=== PATIENT | female | born 1965 | race Caucasian/White ===

== ENCOUNTER 2019-05-27 05:15 | Day surgery (SDC) ==
[2019-05-21 09:19] LABS: URINE SOURCE VOIDED
[2019-05-21 09:57] LABS: BASO% 1.4 % (0.0-0.8); EOS# 0.45 X1000 (0.0-0.7); EOS% 6.5 % (0.0-10.0); HEMATOCRIT 31.9 % (37.0-47.0); HEMOGLOBIN 9.3 g/dL (12.0-16.0); LYMPH# 1.74 X1000 (1.2-3.4); LYMPH% 25.1 % (20.5-51.1); MCH 24.5 PG (27-31); MCHC 29.2 g/dL (33-37); MCV 83.9 FL (81-99); MONO% 7.2 % (1.7-9.3); MPV 10.3 FL (7.4-10.4); NEUT# 4.15 X1000 (1.4-6.5); NEUT% 59.8 % (42.2-75.2); PLT 638 X1000 (130-400); RDW 16.6 % (11.5-14.5); WBC 6.94 X1000 (4.8-10.8)
[2019-05-21 10:25] LABS: BILIRUBIN URINE NEGATIVE (NEGATIVE); BLOOD URINE SMALL (NEGATIVE); COLOR YELLOW; GLUCOSE URINE NEGATIVE (NEGATIVE); KETONE URINE NEGATIVE (NEGATIVE); LEUKOCYTES URINE NEGATIVE (NEGATIVE); NITRITE URINE NEGATIVE (NEGATIVE); PH URINE 6.5; PROTEIN URINE NEGATIVE (NEGATIVE); SP GRAVITY URINE 1.013; TURBIDITY URINE CLEAR (CLEAR); UR EPITHELIAL CELLS <10 /HPF (<10); URINE BACTERIA NEGATIVE /HPF; URINE WBC <10 /HPF (<10); UROBILINOGEN URINE NORMAL (NORMAL)
[2019-05-21 12:52] LABS: URINE RBC 20-40 /HPF (<10)
--- NOTE | 2019-05-26 22:19 | HISTORY AND PHYSICAL ---
CHIEF COMPLAINT: Abnormal uterine bleeding. HISTORY OF PRESENT ILLNESS: Mrs. Ruiz is a 53-year-old woman who presents with complaints of abnormal uterine bleeding/heavy menstrual bleeding. The patient is status post medical management with p.o. Provera and surgical management with endometrial ablation. The patient still with abnormal uterine bleeding and describes heavy menstrual bleeding for about 7 days in April that is status close medical and surgical management. Currently, patient reports spotting. Denies shortness of breath, chest pain or heart palpitations. MEDICATIONS: Ferrous sulfate 325 mg p.o. daily, lisinopril 20 mg p.o. daily, medroxyprogesterone acetate 10 mg p.o. b.i.d., vitamin B12 1000 mcg sublingual daily. PAST MEDICAL HISTORY: Abnormal uterine bleeding, anemia, anxiety, depression, hypertension. PAST SURGICAL HISTORY: Adenoidectomy, bilateral tubal ligation, section x1, tympanoplasty, hysteroscopic endometrial ablation with NovaSure device. OBSTETRICAL HISTORY: . Three vaginal deliveries. One C section. 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 Last menstrual period 04/25/2019. Last Pap smear November 2018: Negative for intraepithelial lesions or malignancy. Last mammogram November 2018, BI-RADS 2, menarche at age 12. FAMILY HISTORY: Paternal grandfather with colon cancer. No known drug allergies. SOCIAL HISTORY: Negative for tobacco, alcohol, or drug use. PHYSICAL EXAMINATION: VITAL SIGNS: Weight 175 pounds. Height 5 feet 4 inches. Temperature 98.3 degrees Fahrenheit. Pulse rate 79, blood pressure 132/76. GENERAL APPEARANCE: No acute distress. Alert, awake and oriented x2. CARDIOVASCULAR: Regular rate and rhythm. Positive S1, S2. RESPIRATORY: Clear auscultation bilaterally. Normal breath sounds. ABDOMEN: Normal bowel sounds. Nontender, soft. ASSESSMENT: Mrs. Ruiz is a 53-year-old G4, P4 with abnormal uterine bleeding/heavy menstrual bleeding status post medical management with p.o. Provera and surgical management with endometrial ablation via NovaSure device. PLAN: Admit for definitive management with robotic-assisted laparoscopic hysterectomy with bilateral salpingectomy. Patient counseled on bilateral oophorectomy and risk of maintaining ovaries at age 53. Patient requesting to keep bilateral ovaries. In form will only remove ovary if abnormalities noted during surgery reviewed. Reviewed the risks, benefits and alternatives to robotic-assisted hysterectomy. The risks not limited to, bleeding, infection, injury to surrounding organs, including bowel, bladder, ureters, or blood vessels. Advised to continue ferrous sulfate and Provera b.i.d. Advised NPO after midnight prior to the procedure. I advised to hold all medications on day of procedure. Patient requesting discharge home on postoperative day 0. We will consider option, but recommend discharge home on postoperative day 1.
[2019-05-27] MEDS ORDERED: LR 1,000 ML ONE ×2 (05:38→06:29)
[2019-05-27] MEDS ORDERED: KEFZOL 1 GM/D5W 2 GM/100 ML IVPB ONE (05:38)
[2019-05-27] MEDS ORDERED: VERSED ONE (06:19)
[2019-05-27] MEDS ORDERED: DIPRIVAN 1% ONE (06:19)
[2019-05-27] MEDS ORDERED: DILAUDID ONE (06:20)
[2019-05-27] MEDS ORDERED: QUELICIN (DOSE) ONE (06:23)
[2019-05-27] MEDS ORDERED: ROBINUL ONE ×2 (06:23→09:28)
[2019-05-27] MEDS ORDERED: SODIUM CHLORIDE 0.9% 10 ML ONE ×2 (06:23→09:10)
[2019-05-27] MEDS ORDERED: XYLOCAINE-MPF 2% ONE (06:23)
[2019-05-27] MEDS ORDERED: NORCURON ONE ×2 (06:23→09:10)
[2019-05-27] MEDS ORDERED: SENSORCAINE-MPF 0.5%/EPI 1:200,000 ONE (06:28)
--- NOTE | 2019-05-27 06:50 | H&P REVIEW ---
H&P Update H&P Review: H&P was reviewed and patient was examined, No change has occurred in the patient's condition
[2019-05-27] MEDS ORDERED: DECADRON ONE (07:11)
[2019-05-27 08:46] LABS: URINE SOURCE CATH
[2019-05-27 08:52] LABS: BILIRUBIN URINE NEGATIVE (NEGATIVE); BLOOD URINE NEGATIVE (NEGATIVE); COLOR STRAW; GLUCOSE URINE NEGATIVE (NEGATIVE); KETONE URINE NEGATIVE (NEGATIVE); LEUKOCYTES URINE NEGATIVE (NEGATIVE); NITRITE URINE NEGATIVE (NEGATIVE); PROTEIN URINE NEGATIVE (NEGATIVE); SP GRAVITY URINE 1.016; TURBIDITY URINE CLEAR (CLEAR); UROBILINOGEN URINE NORMAL (NORMAL)
[2019-05-27 08:53] LABS: UR EPITHELIAL CELLS <10 /HPF (<10); URINE BACTERIA NEGATIVE /HPF; URINE RBC <10 /HPF (<10); URINE WBC <10 /HPF (<10)
[2019-05-27] MEDS ORDERED: OFIRMEV 1000 MG/ISOTONIC SOLN 1,000 MG/100 ML BOTTLE ONE (09:23)
[2019-05-27] MEDS ORDERED: MORPHINE ONE (09:25)
[2019-05-27] MEDS ORDERED: ZOFRAN ONE (09:27)
[2019-05-27] MEDS ORDERED: NEOSTIGMINE ONE (09:28)
[2019-05-27] MEDS ORDERED: METROGEL-VAGINAL 0.75% GEL ONE (10:46)
[2019-05-27] MEDS ORDERED: ZOFRAN IV PRN (10:57)
[2019-05-27] MEDS ORDERED: MOTRIN PO PRN (10:57)
[2019-05-27] MEDS ORDERED: AMBIEN PO PRN (10:57)
[2019-05-27] MEDS: DILAUDID ONE ×3 (11:01→11:58)
[2019-05-27] MEDS: TORADOL ONE ×2 (11:22→11:59)
[2019-05-27] MEDS: LR 1,000 ML IV SCH ×2 (11:45→18:50)
[2019-05-27] MEDS: MYLICON PO SCH ×3 (13:49→22:25)
[2019-05-27] MEDS: NORCO-10 PO PRN (14:42)
[2019-05-27] MEDS: OFIRMEV 1000 MG/ISOTONIC SOLN 1,000 MG/100 ML BOTTLE IV SCH ×2 (15:03→22:25)
[2019-05-27] MEDS ORDERED: SODIUM CHLORIDE 0.9% INJ PRN (15:51)
[2019-05-27] MEDS ORDERED: BENADRYL IV PRN (15:51)
[2019-05-27] MEDS ORDERED: PHENERGAN IV PRN (15:51)
[2019-05-27] MEDS ORDERED: DILAUDID PCA VIAL IV PRN (15:51)
[2019-05-27] MEDS: TORADOL IV SCH ×2 (16:41→22:25)
[2019-05-27] MEDS: COLACE PO SCH (22:25)
[2019-05-27] MEDS: PERIDEX MT SCH (22:26)
[2019-05-28] MEDS: OFIRMEV 1000 MG/ISOTONIC SOLN 1,000 MG/100 ML BOTTLE IV SCH ×2 (04:52→08:03)
[2019-05-28] MEDS: TORADOL IV SCH (04:52)
[2019-05-28] MEDS: LR 1,000 ML IV SCH ×2 (04:53→08:02)
[2019-05-28 06:52] LABS: BASO# 0.02 X1000 (0.0-0.2); BASO% 0.2 % (0.0-0.8); EOS# 0.03 X1000 (0.0-0.7); EOS% 0.2 % (0.0-10.0); HEMATOCRIT 26.6 % (37.0-47.0); HEMOGLOBIN 7.7 g/dL (12.0-16.0); IMM GRAN# 0.02 X1000 (0.0-0.04); IMM GRAN% 0.2 % (0.0-0.5); LYMPH# 1.46 X1000 (1.2-3.4); LYMPH% 11.1 % (20.5-51.1); MCH 23.8 PG (27-31); MCHC 28.9 g/dL (33-37); MCV 82.4 FL (81-99); MONO# 1.25 X1000 (0.11-0.59); MONO% 9.5 % (1.7-9.3); MPV 10.8 FL (7.4-10.4); NEUT# 10.35 X1000 (1.4-6.5); NEUT% 78.8 % (42.2-75.2); PLT 485 X1000 (130-400); RBC 3.23 XMIL (4.2-5.4); RDW 17.4 % (11.5-14.5); WBC 13.13 X1000 (4.8-10.8)
[2019-05-28 07:19] LABS: ANISOCYTOSIS 1+; BANDS 2 % (0-1); HYPOCHROM 2+; LYMPHS 12 % (21-51); MONO 6 % (1-9); SEGS 80 % (42-75)
[2019-05-28 07:20] LABS: LARGE PLATELETS 1+
[2019-05-28 07:56] VITALS: BP 114/54
[2019-05-28] MEDS: MYLICON PO SCH (08:03)
[2019-05-28] MEDS: PRINIVIL PO SCH ×2 (08:03→08:04)
[2019-05-28] MEDS: PERIDEX MT SCH (08:03)
[2019-05-28] MEDS: COLACE PO SCH (08:03)
[2019-05-28] MEDS ORDERED: MOTRIN PO SCH (08:30)
--- NOTE | 2019-05-28 08:30 | OB/GYN PROGRESS NOTE ---
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 Progress Note: Vital Signs - 24 hr 05/27/19 10:52 05/27/19 11:02 05/27/19 11:12 Temperature 96.8 F L Pulse Rate 96 H 80 94 H Respiratory Rate 18 14 14 Blood Pressure 132/64 Blood Pressure [Left Arm] 133/73 103/86 115/94 O2 Sat by Pulse Oximetry 96 100 100 05/27/19 11:22 05/27/19 11:32 05/27/19 11:35 Temperature 97.6 F Pulse Rate 81 73 70 Respiratory Rate 14 14 20 Blood Pressure 152/69 Blood Pressure [Left Arm] 115/94 152/85 O2 Sat by Pulse Oximetry 100 97 98 05/27/19 11:45 05/27/19 11:54 05/27/19 12:00 Temperature Pulse Rate 71 69 63 Respiratory Rate Blood Pressure 115/45 152/69 124/64 Blood Pressure [Left Arm] O2 Sat by Pulse Oximetry 98 05/27/19 12:15 05/27/19 12:30 05/27/19 13:00 Temperature Pulse Rate 67 66 72 Respiratory Rate Blood Pressure 124/70 126/70 138/64 Blood Pressure [Left Arm] O2 Sat by Pulse Oximetry 05/27/19 13:30 05/27/19 14:00 05/27/19 14:30 Temperature Pulse Rate 69 58 L 56 L Respiratory Rate Blood Pressure 131/93 142/63 146/81 Blood Pressure [Left Arm] O2 Sat by Pulse Oximetry 05/27/19 15:00 05/27/19 16:00 05/27/19 17:00 Temperature Pulse Rate 69 66 63 Respiratory Rate Blood Pressure 141/66 145/63 120/56 Blood Pressure [Left Arm] O2 Sat by Pulse Oximetry 05/27/19 17:06 05/27/19 18:00 05/27/19 21:00 Temperature Pulse Rate 61 78 Respiratory Rate 16 Blood Pressure 144/75 Blood Pressure [Left Arm] O2 Sat by Pulse Oximetry 96 99 05/27/19 21:11 05/28/19 00:43 05/28/19 03:51 Temperature 97.6 F 97.9 F 99.5 F Pulse Rate 67 58 L 72 Respiratory Rate 18 18 20 Blood Pressure 129/99 120/75 106/51 Blood Pressure [Left Arm] O2 Sat by Pulse Oximetry 99 99 99 05/28/19 07:54 Temperature 98.7 F Pulse Rate 72 Respiratory Rate 16 Blood Pressure 114/54 Blood Pressure [Left Arm] O2 Sat by Pulse Oximetry 94 L Laboratory Results - last 24 hr 05/27/19 05/28/19 07:06 05:24 WBC 13.13 H RBC 3.23 L Hgb 7.7 L Hct 26.6 L MCV 82.4 MCH 23.8 L MCHC 28.9 L RDW Std Deviation 17.4 H Plt Count 485 H MPV 10.8 H Immature Gran % (Auto) 0.2 Neut % (Auto) 78.8 H Lymph % (Auto) 11.1 L Walsh % (Auto) 9.5 H Eos % (Auto) 0.2 Baso % (Auto) 0.2 Immature Gran # (Auto) 0.02 Neut # (Auto) 10.35 H Lymph # (Auto) 1.46 Walsh # (Auto) 1.25 H Eos # (Auto) 0.03 Baso # (Auto) 0.02 Segmented Neutrophils 80 H Band Neutrophils 2 H Lymphocytes 12 L Monocytes 6 Hypochromia 2+ Large Platelets 1+ Anisocytosis 1+ Urine Source CATH Urine Color STRAW Urine Turbidity CLEAR Urine pH 6.0 Ur Specific [place] 1.016 Urine Protein NEGATIVE Ur Glucose (Stick) NEGATIVE Ur Ketones (Stick) NEGATIVE Urine Blood NEGATIVE Urine Nitrite NEGATIVE Urine Bilirubin NEGATIVE Urobilinogen Dipstick NORMAL Urine Leukocytes NEGATIVE Urine WBC (Auto) <10 Urine RBC (Auto) <10 U Epithel Cells (Auto) <10 Urine Bacteria (Auto) NEGATIVE HPI: Pt seen and examined. Currently w/o complaints. Reports pain well controlled with SPECIAL SERVICES DIRECTOR over night. Tolerating regular diet. Denies fever/chills/n/v. VS: please see above: GEN: NAD CV: RRR RESP: CTA b/l ABD: soft, NTTP INC: port sites x 4, c/d/i EXT: neg CT LABS: please see above ASSESSMENT: 53yo POD#1 s/p robotic assisted hysterectomy secondary to AUB/HMB- leiomyoma PLAN: -d/c SPECIAL SERVICES DIRECTOR, start PO pain meds -remove vaginal packing coated with metrogel -d/c mccann cath -OOB to ambulation -regular diet -plan for d/c home today
[2019-05-28] MEDS: NORCO-10 PO PRN (08:51)
[2019-05-28] MEDS ORDERED: PRILOSEC PO ONE (10:51)
--- NOTE | 2019-07-08 14:41 | OPERATIVE NOTE ---
PROCEDURE DATE: 05/27/2019 SURGEON: Lor Andrews DO. CORPORATE DEVELOPMENT ANALYST: Dr. Flower Stevens. PREOPERATIVE DIAGNOSIS: Abnormal uterine bleeding/heavy menstrual bleeding. POSTOPERATIVE DIAGNOSES: 1. Abnormal uterine bleeding/heavy menstrual bleeding. 2. Uterine fibroids. 3. Vaginal laceration. ANESTHESIA: General endotracheal anesthesia. ESTIMATED BLOOD LOSS: 100 mL. COMPLICATIONS: First degree vaginal laceration. SPECIMENS REMOVED: Cervix, uterus, bilateral tubes. SURGICAL RISKS: The patient was informed of the risks and benefits of a robotic-assisted laparoscopic hysterectomy with bilateral salpingectomy. Risks included, but were not limited to, bleeding, infection, injury to surrounding organs or tissue. The patient expressed understanding of the risks involved with the procedure. All questions were answered and the patient consented to the procedure. PROCEDURE DETAILS: The patient was taken to the operating room where a time-out was performed to confirm correct patient and correct procedure. The patient was then position on the operating table in dorsal lithotomy position with the legs supported using Horacio type stirrups. General endotracheal anesthesia was induced. The patient was administered preoperative prophylactic intravenous antibiotics. The abdomen and vagina were prepped and draped in the usual sterile fashion. Attention was then directed to the perineum where a Singer was inserted into the bladder. A bimanual exam was performed and the uterus was found to be anteverted and mobile with no palpable adnexal masses noted. A bivalve speculum was then placed into the vagina. The anterior lip of the cervix was visualized and grasped with a single-tooth tenaculum. The cervix was dilated adequately for the introduction of a VCare uterine manipulator to be inserted through the cervix. Following placement of the uterine manipulator, the speculum and tenaculum were removed from the vagina. Attention was then turned to the abdomen where a vertical midline incision was performed at the umbilicus. The Veress needle was introduced into the peritoneum. Placement of the needle was confirmed using normal saline solution. Pneumoperitoneum was established up to 15 mmHg of carbon dioxide. The Veress needle was removed. Approximately 20 cm from the uterus and 5 cm above the umbilicus, an incision was made and a 12 mm trocar and sleeve were introduced through the incision into the peritoneal cavity. Laparoscopic visualization confirmed the intraperitoneal insertion of the port. Pneumoperitoneum was then maintained using carbon dioxide. A second small horizontal incision was made 10 mm to the left of the midline incision and an 8.5 mm trocar was introduced under direct visualization. A third small horizontal incision was made 10 cm to the right of the midline incision and another 8.5 mm trocar was introduced under direct visualization. A fourth small incision was made approximately midway between the midline trocar and the left 8.5 mm trocar and a 5 mm accessory port was inserted under direct visualization. The abdomen was then thoroughly inspected and there was no evidence of injury to the bowel, bladder, or vasculature. The robotic device was then docked to the port site. The mesosalpinx below the right tube was cauterized using a fenestrated bipolar device and cut down using the monopolar scissors. Attention was then turned to the right round ligament which was cauterized using the fenestrated bipolar device and cut with the monopolar scissors. The right utero-ovarian ligament was cauterized using fenestrated bipolar device and cut with monopolar scissors. Visualization of the right ureter was established prior to ligation of the right utero-ovarian ligament. The monopolar scissors were then used to incise the broad ligament anteriorly in the right side of the bladder where the right bladder flap was developed. Attention was then turned to the left side of the uterus and in a similar manner, the mesosalpinx below the left fallopian tube was cauterized using the fenestrated bipolar device and cut with monopolar scissors. The round ligament was cauterized again using fenestrated bipolar device and cut with monopolar scissors. The utero-ovarian ligament was cauterized with fenestrated bipolar device and cut with monopolar scissors. The monopolar scissors were then used to incise the broad ligament anteriorly on the left side and developed the left side of the bladder flap. The uterine arteries were then cauterized using the fenestrated bipolar device and cut using monopolar scissors on both the left and right side. The bladder flap was further retracted off the lower uterine segment and off the cervix anteriorly. The cardinal ligaments were then identified, cauterized, and cut bilaterally using the fenestrated bipolar, followed by the monopolar scissors. The uterus and cervix were then amputated from the vagina using the monopolar cautery against the VCare cuff device. Due to the size of the uterus, the uterus was unable to be removed from the abdominal cavity via the VCare device through the vagina. Upon examination of the uterus through the vaginal cavity, multiple uterine fibroids were identified within the myometrium. The decision was made to core the uterus for removal through the vaginal cavity. A double tooth tenaculum was used to grasp the upper portion of the cervix. Traction was applied to the uterus using the double tooth tenaculum and using Chávez scissors and a long scalpel, the uterus was cored circumferentially for removal through the vaginal cavity. The uterus was removed successfully through vaginal cavity and sent to Pathology. The vaginal cuff was then close from above with a 0 V-Loc synthetic absorbable suture. Good hemostasis was obtained and noted. The abdomen was irrigated and again good hemostasis was noted. Surgicel was applied to the cuff to prevent adhesion formation along the vaginal cuff. Instruments were then removed from the abdomen. A Ke Fermin was then used and placed in the midline port where the 12 mm trocar was placed. Once the device was inserted through the trocar, the trocar device was removed and a suture was placed through the Ke Lua device to close the fascia, peritoneum, and muscles using a 0 Vicryl under direct visualization. Pneumoperitoneum was then evacuated and the skin incisions were closed using 3-0 Monocryl and Dermabond. The vagina was then inspected and a small first degree laceration was noted and repaired with 3-0 Vicryl in a running nonlocking pattern. Good hemostasis was obtained. All needle, sponge, and instrument counts were noted to be correct x2 at the completion of the procedure. The patient tolerated the procedure well and was transferred to the recovery room in stable condition. [facility]
== END 2019-05-28 11:20 | disposition home or self-care (01) ==
LOC: 4N 05:15 → OR 05:15
PROVIDERS: ATTEND Obstetrics & Gynecology